=== PATIENT | male | born 1945 | race Caucasian/White ===

== ENCOUNTER 2018-06-06 11:06 | Day surgery (SDC) | payer OTHER ==
[2018-06-06] VITALS (12 sets, daily range): BP systolic 83–166; BP diastolic 55–85
[~2018-06-06] VITALS: Ht 170.2 cm; Wt 74.6 kg
[2018-06-06] MEDS ORDERED: normal saline 1000ml 1,000 ML IV PRN (11:35)
[2018-06-06] MEDS ORDERED: CETI10TA15 PO (12:07)
[2018-06-06] MEDS ORDERED: ADV50100 IH (12:07)
[2018-06-06] MEDS ORDERED: SIMV40TA PO (12:07)
[2018-06-06] MEDS ORDERED: DOCU250C4 PO (12:07)
[2018-06-06] MEDS ORDERED: QUET300T19 PO (12:07)
[2018-06-06] MEDS ORDERED: ALBU8HFA PO (12:07)
[2018-06-06] MEDS ORDERED: BUDE10.2 INH (12:07)
[2018-06-06] MEDS ORDERED: ASPI-41 PO (12:07)
[2018-06-06] MEDS ORDERED: AZEL30SP3 BOTHNARES (12:07)
[2018-06-06] MEDS ORDERED: FLO0.4C PO (12:07)
[2018-06-06] MEDS ORDERED: GABA-532 PO (12:07)
[2018-06-06] MEDS ORDERED: LISI40TA4 PO (12:07)
[2018-06-06] MEDS ORDERED: DULO20CA50 PO (12:07)
[2018-06-06] MEDS ORDERED: ATEN25TA PO (12:07)
[2018-06-06 12:20] LABS: BASOPHILS % (AUTO) 0.4 % (0-1); EOSINOPHILS # (AUTO) 0.1 X10'3 (0-0.9); EOSINOPHILS % (AUTO) 1.1 % (0-6); HEMATOCRIT 40.3 % (42.0-52.0); HEMOGLOBIN 13.6 g/dl (14.0-17.9); LYMPHOCYTES # (AUTO) 1.1 X10'3 (1.1-4.8); LYMPHOCYTES % (AUTO) 15.6 % (21-51); MEAN CORPUSCULAR HEMOGLOBIN 31.2 PG (27.0-31.0); MEAN CORPUSCULAR HGB CONC 33.7 g/dL (33.0-36.5); MEAN CORPUSCULAR VOLUME 92.7 FL (78-98); MEAN PLATELET VOLUME 8.2 FL (7.4-10.4); MONOCYTES # (AUTO) 0.6 X10'3 (0-0.9); NEUTROPHILS # (AUTO) 5.2 X10'3 (1.8-7.7); NEUTROPHILS % (AUTO) 73.9 % (42-75); PLATELET COUNT 209 X10'3 (140-440); RED BLOOD COUNT 4.34 X10'6 (4.70-6.10); RED CELL DISTRIBUTION WIDTH 14.2 % (11.5-14.5); WHITE BLOOD COUNT 7.1 X10'3 (4.5-11.0)
[2018-06-06 12:54] LABS: ALBUMIN 3.2 G/DL (3.4-5.0); ANION GAP 8 (8-16); BLOOD UREA NITROGEN 21 MG/DL (7-18); BUN/CREATININE RATIO 18.3 (5.4-32.0); CALCIUM 9.4 MG/DL (8.5-10.1); CHLORIDE 103 MMOL/L (99-107); CREATININE 1.15 MG/DL (0.60-1.10); GLUCOSE 124 MG/DL (70-104); POTASSIUM 4.7 MMOL/L (3.5-5.1); SODIUM 140 MMOL/L (135-145); TOTAL CARBON DIOXIDE 29.4 MMOL/L (24-32); eGFR 63 ML/MIN
[2018-06-06] MEDS ORDERED: normal saline 1000ml 1,000 ML IV SCH (12:58)
[2018-06-06] MEDS ORDERED: midazolam 2 mg/2 ml injection IV PRN (13:00)
[2018-06-06] MEDS ORDERED: fentaNYL/PF 50MCG/1 ML 2ML syringe IV PRN (13:00)
[2018-06-06] MEDS ORDERED: LIDOcaine 1%/PF 5ML 10 MG/ML VIAL SQ ONE (13:00)
[2018-06-06] MEDS ORDERED: fentaNYL/PF 50MCG/1 ML 2ML syringe ONE (13:06)
[2018-06-06] MEDS ORDERED: midazolam 2 mg/2 ml injection ONE (13:06)
[2018-06-06] MEDS ORDERED: LIDOcaine 1%/PF 5ML 10 MG/ML VIAL ONE (13:06)
== END 2018-06-06 15:00 | disposition home or self-care (01) ==
LOC: SSTAY O 11:06
PROVIDERS: ATTEND Radiology Diagnostic Radiology
DX: C34.12 Malignant neoplasm of upper lobe, left bronchus or lung (principal); Z98.890 Other specified postprocedural states; Z79.899 Other long term (current) drug therapy
CPT/HCPCS: 32405; 36415; 71045; 77012; 80048; 85025; 85610; C2613; J2001; J2250; J3010; J7030